=== PATIENT | female | born 1940 | race Caucasian/White ===

== ENCOUNTER 2018-07-19 19:08 | Inpatient (IN) | payer MEDICARE ==
[~2018-07-19] VITALS: Ht 167.6 cm; Wt 90.7 kg
[2018-07-19] MEDS ORDERED: ONDANSETRON HCL 4MG/2ML INJ IV STA (19:58)
[2018-07-19] MEDS ORDERED: KETOROLAC 30MG/ML VIAL IV STA (19:58)
[2018-07-19] MEDS ORDERED: SODIUM CHLORIDE 0.9% 1,000 ML IV ONE (19:58)
[2018-07-19 21:11] LABS: HEMATOCRIT. 36.4 % (36.0-48.0); HEMOGLOBIN. 12.5 g/dL (12.0-16.0); MEAN CORPUSCULAR HEMOGLOBIN 30.3 pg (28.0-32.0); MEAN CORPUSCULAR VOLUME 88.5 fL (81.0-99.0); MEAN PLATELET VOLUME 7.5 fl (7.4-10.4); PLATELET 283 x1000/uL (130-400); RED BLOOD CELL COUNT 4.11 mill/uL (4.2-5.4); RED CELL DISTRIBUTION WIDTH 13.5 % (11.6-14.6)
[2018-07-19 21:19] LABS: CHLORIDE 92 mEq/L (98-107)
[2018-07-19 21:36] LABS: PLATELET ESTIMATE NORMAL
[2018-07-19] MEDS ORDERED: SODIUM CHLORIDE 0.9% 1,000 ML IV SCH (22:12)
[2018-07-19] MEDS ORDERED: CEFOXITIN SODIUM 1 G in DEXTROSE 5% WATER 50 ML IV ONE (22:15)
[2018-07-20 04:00] VITALS: BP 112/41
[2018-07-20] MEDS ORDERED: HYDR25TA MT (04:22)
[2018-07-20] MEDS ORDERED: ONDANSETRON HCL 4MG/2ML INJ IV PRN (04:45)
[2018-07-20 04:56] VITALS: BP 112/41
[2018-07-20] MEDS ORDERED: MORPHINE SULFATE 4 MG/ML CPJ (NOT FOR IM USE) IV PRN (05:45)
[2018-07-20 08:00] VITALS: BP 124/60
[2018-07-20] MEDS ORDERED: DEXT 5%/0.9% NACL KCL 20MEQ/L 1,000 ML IV SCH (08:00)
[2018-07-20] MEDS: METRONIDAZOLE 500 MG PREMIX 100 ML IV SCH ×3 (08:15→23:54)
[2018-07-20] MEDS: PANTOPRAZOLE SODIUM 40 MG/VIAL IV SCH (08:15)
[2018-07-20] MEDS ORDERED: LEVOFLOXACIN 500MG PREMIX 100 ML IV SCH (09:00)
[2018-07-20] MEDS ORDERED: KCL 20MEQ/100ML PREMIX 100 ML IV NR (10:00)
[2018-07-20] MEDS: AZTREONAM 1 G in DEXTROSE 5% WATER 50 ML IV SCH ×2 (10:45→22:10)
[2018-07-20 11:01] LABS: HEMATOCRIT. 30.7 % (36.0-48.0); HEMOGLOBIN. 10.5 g/dL (12.0-16.0); MEAN CORPUSCULAR HEMOGLOBIN 30.5 pg (28.0-32.0); MEAN CORPUSCULAR VOLUME 89.3 fL (81.0-99.0); MEAN PLATELET VOLUME 7.7 fl (7.4-10.4); PLATELET 237 x1000/uL (130-400); RED BLOOD CELL COUNT 3.44 mill/uL (4.2-5.4); RED CELL DISTRIBUTION WIDTH 13.6 % (11.6-14.6)
[2018-07-20 11:25] LABS: CHLORIDE 98 mEq/L (98-107)
[2018-07-20 12:00] VITALS: BP 134/56
[2018-07-20 13:00] LABS: CLARITY URINE CLOUDY (CLEAR); COLOR URINE ORANGE (YELLOW); KETONES URINE TRACE (NEGATIVE); LEUKOCYTE ESTERASE URINE 1+ (NEGATIVE); NITRITE URINE POSITIVE (NEGATIVE); OCCULT BLOOD URINE 1+ (NEGATIVE); PH URINE 5.5 (4.5-8.0); PROTEIN URINE 3+ (NEGATIVE); SPECIFIC GRAVITY URINE 1.028 (1.005-1.030)
[2018-07-20 14:00] LABS: PLATELET ESTIMATE NORMAL
[2018-07-20 15:32] LABS: *AMPHETAMINES SCREEN URINE NEGATIVE (NEGATIVE); *BARBITURATES SCREEN URINE NEGATIVE (NEGATIVE)
[2018-07-20 15:33] LABS: *BENZODIAZEPINES SCREEN URINE NEGATIVE (NEGATIVE); *COCAINE SCREEN URINE NEGATIVE (NEGATIVE); CANNABINOID URINE SCREEN NEGATIVE (NEGATIVE); METHADONE URINE SCREEN NEGATIVE (NEGATIVE); OPIATES URINE SCREEN NEGATIVE (NEGATIVE); PHENCYCLIDINE URINE SCREEN NEGATIVE (NEGATIVE)
[2018-07-20 16:00] VITALS: BP 132/59
[2018-07-20 17:14] LABS: CHLORIDE 98 mEq/L (98-107)
[2018-07-20 17:15] LABS: INR 1.2; PROTHROMBIN TIME 11.6 sec (9.1-11.1)
[2018-07-20 17:18] LABS: HEMATOCRIT 31.8 % (36.0-48.0); HEMOGLOBIN 10.6 g/dL (12.0-16.0); MEAN CORPUSCULAR HEMOGLOBIN 29.7 pg (28.0-32.0); MEAN CORPUSCULAR VOLUME 88.9 fL (81.0-99.0); PLATELET 240 x1000/uL (130-400); RED BLOOD CELL COUNT 3.58 mill/uL (4.2-5.4); RED CELL DISTRIBUTION WIDTH 13.7 % (11.6-14.6)
[2018-07-20 23:40] VITALS: BP 110/42
[2018-07-21 03:41] VITALS: BP 108/48
[2018-07-21 07:42] LABS: HEMATOCRIT 28.7 % (36.0-48.0); HEMOGLOBIN 9.7 g/dL (12.0-16.0); MEAN CORPUSCULAR HEMOGLOBIN 30.5 pg (28.0-32.0); MEAN CORPUSCULAR VOLUME 89.8 fL (81.0-99.0); PLATELET 216 x1000/uL (130-400); RED CELL DISTRIBUTION WIDTH 13.6 % (11.6-14.6)
[2018-07-21 07:51] LABS: CHLORIDE 100 mEq/L (98-107)
[2018-07-21 07:59] LABS: HDL CHOLESTEROL 45 mg/dL (40-59); LDL CHOLESTEROL 53 mg/dL (5-100)
[2018-07-21 08:00] VITALS: BP 113/62
[2018-07-21] MEDS: DEXT 5%/0.9% NACL KCL 20MEQ/L 1,000 ML IV SCH ×2 (08:36→19:49)
[2018-07-21] MEDS: PANTOPRAZOLE SODIUM 40 MG/VIAL IV SCH (09:02)
[2018-07-21] MEDS: METRONIDAZOLE 500 MG PREMIX 100 ML IV SCH ×2 (09:02→15:54)
[2018-07-21] MEDS: AZTREONAM 1 G in DEXTROSE 5% WATER 50 ML IV SCH ×2 (09:15→23:13)
[2018-07-21 12:00] VITALS: BP 122/56
[2018-07-21 16:00] VITALS: BP 138/61
[2018-07-21] MEDS: MUPIROCIN 2% OINT 22GM NS SCH (19:50)
[2018-07-21 20:00] VITALS: BP 116/51
[2018-07-22] VITALS: BP 124/76
[2018-07-22] MEDS: METRONIDAZOLE 500 MG PREMIX 100 ML IV SCH ×3 (01:59→15:53)
[2018-07-22 04:00] VITALS: BP 132/63
[2018-07-22 08:00] VITALS: BP 134/66
[2018-07-22 09:08] LABS: BASOPHILS % 0.7 % (0.0-2.0); EOSINOPHILS % 2.1 % (0.0-5.0); HEMATOCRIT. 30.1 % (36.0-48.0); LYMPHOCYTES % 12.1 % (20.0-50.0); MEAN CORPUSCULAR HEMOGLOBIN 30.2 pg (28.0-32.0); MEAN CORPUSCULAR VOLUME 90.7 fL (81.0-99.0); MEAN PLATELET VOLUME 7.5 fl (7.4-10.4); MONOCYTES % 8.7 % (2.0-8.0); NEUTROPHILS % 76.4 % (40.0-76.0); PLATELET 261 x1000/uL (130-400); RED BLOOD CELL COUNT 3.31 mill/uL (4.2-5.4); RED CELL DISTRIBUTION WIDTH 13.8 % (11.6-14.6)
[2018-07-22] MEDS: AZTREONAM 1 G in DEXTROSE 5% WATER 50 ML IV SCH ×2 (09:08→21:13)
[2018-07-22] MEDS: PANTOPRAZOLE SODIUM 40 MG/VIAL IV SCH (09:08)
[2018-07-22] MEDS: MUPIROCIN 2% OINT 22GM NS SCH ×2 (09:09→21:05)
[2018-07-22] MEDS: DEXT 5%/0.9% NACL KCL 20MEQ/L 1,000 ML IV SCH ×2 (09:13→20:30)
[2018-07-22 10:29] LABS: CHLORIDE 103 mEq/L (98-107)
[2018-07-22 11:51] VITALS: BP 116/62
[2018-07-22 16:00] VITALS: BP 122/63
[2018-07-22 20:00] VITALS: BP 111/60
[2018-07-23] VITALS: BP 119/40
[2018-07-23 04:00] VITALS: BP 97/52
[2018-07-23 07:16] LABS: CHLORIDE 104 mEq/L (98-107)
[2018-07-23 08:00] VITALS: BP 153/69
[2018-07-23] MEDS: METRONIDAZOLE 500 MG PREMIX 100 ML IV SCH ×2 (08:00)
[2018-07-23] MEDS: DEXT 5%/0.9% NACL KCL 20MEQ/L 1,000 ML IV SCH (09:00)
[2018-07-23] MEDS ORDERED: FAMOTIDINE 20MG/2ML VIAL IV SCH ×2 (09:00→21:00)
[2018-07-23] MEDS: MUPIROCIN 2% OINT 22GM NS SCH (09:08)
[2018-07-23] MEDS: AZTREONAM 1 G in DEXTROSE 5% WATER 50 ML IV SCH (10:00)
[2018-07-23] MEDS ORDERED: GUAIFENESIN-DM 200MG-20MG/10ML UDC PO PRN (10:30)
[2018-07-23 12:24] VITALS: BP 142/64
[2018-07-23] MEDS: METRONIDAZOLE 500MG TABLET PO SCH ×2 (15:13→15:15)
[2018-07-23 15:23] VITALS: BP 142/61
[2018-07-23 16:00] VITALS: BP 145/65
== END 2018-07-23 16:15 | disposition home or self-care (01) | DRG 445 ==
LOC: ER 19:08 → 6EST 22:13 → EDBEDREQ 22:15 → ENRESERV 07-20 01:42
PROVIDERS: ADMIT Internal Medicine; ATTEND Internal Medicine
DX: K80.00 Calculus of gallbladder with acute cholecystitis without obstruction (principal); E87.1 Hypo-osmolality and hyponatremia; N39.0 Urinary tract infection, site not specified; D64.9 Anemia, unspecified; E87.6 Hypokalemia; I10 Essential (primary) hypertension; K57.90 Diverticulosis of intestine, part unspecified, without perforation or abscess without bleeding; R73.9 Hyperglycemia, unspecified; E86.0 Dehydration; E66.9 Obesity, unspecified; I27.20 Pulmonary hypertension, unspecified; Z59.0 Homelessness; Z91.19 Patient's noncompliance with other medical treatment and regimen; Z88.1 Allergy status to other antibiotic agents; Z88.2 Allergy status to sulfonamides; Z88.0 Allergy status to penicillin; Z79.899 Other long term (current) drug therapy
CPT/HCPCS: 36415; 71045; 74176; 76705; 80048; 80061; 80076; 80305; 82270; 83036; 83605; 84484; 85027; 93005; 93306; 99285; C1893; C9113; J0694; J1885; J1956; J2270; J2405; J3480; J3490; J7030; J7060